=== PATIENT | female | born 1970 | race American Indian/Alaskan Native ===

== ENCOUNTER 2020-07-06 14:52 | Emergency (ER) | payer SELFPAY ==
--- NOTE | 2020-07-06 15:11 | Emergency Department Report ---
Blank Doc - Documentation Documentation: 50-year-old female that presents with acute HTN and headaches with nausea and blurry vision. This initial assessment/diagnostic orders/clinical plan/treatment(s) is/are subject to change based on patient's health status, clinical progression and re- assessment by fellow clinical providers in the ED. Further treatment and workup at subsequent clinical providers discretion. Patient/guardians urged not to elope from the ED as their condition may be serious if not clinically assessed and managed. Initial orders include: 1- Patient sent to [facility] for further evaluation and treatment 2- labs- r/o HTN emergency 3- CT head
[2020-07-06 15:47] LABS: Basophils % (Auto) 0.6 % (0.0-1.8); Eosinophils % (Auto) 0.4 % (0.0-4.3); Hematocrit 37.3 % (30.3-42.9); Hemoglobin 11.8 gm/dl (10.1-14.3); Lymphocytes % (Auto) 46.5 % (13.4-35.0); Mean Corpuscular HGB Conc 32 % (30-34); Monocytes # (Auto) 0.5 K/mm3 (0.0-0.8); Monocytes % (Auto) 7.2 % (0.0-7.3); Platelet Count 388 K/mm3 (140-440); Red Blood Count 5.52 M/mm3 (3.65-5.03); Red Cell Distribution Width 14.4 % (13.2-15.2)
[2020-07-06 15:57] LABS: Mean Corpuscular Volume 68 fl (79-97)
--- NOTE | 2020-07-06 15:57 | Cat Scan Report ---
CT head/brain wo con INDICATION: Headache, hypertension. TECHNIQUE: Routine CT head without contrast. All CT scans at this location are performed using CT dos e reduction for ALARA by means of automated exposure control. COMPARISON: None. FINDINGS: BRAIN / INTRACRANIAL CONTENTS: No acute hemorrhage, mass effect, midline shift, or hydrocephalus. No appreciable acute large territorial or lacunar infarct. Small chronic lacunar infarct in the left per iventricular white matter. Normal ventricular and cisternal size for age. ORBITS: No significant abnormality of visualized orbits. SINUSES / MASTOIDS: No significant abnormality of visualized sinuses and mastoid air cells. ADDITIONAL FINDINGS: None. IMPRESSION: 1. No acute intracranial abnormality. Signer Name: Shahbaz Christianson MD Signed: 07/06/2020 3:52 PM Workstation Name: [email or web address]
[2020-07-06 16:11] LABS: Blood Urea Nitrogen 7 mg/dL (7-17); Calcium 9.4 mg/dL (8.4-10.2); Hemolysis Index 9
[2020-07-06 16:12] LABS: BUN/Creatinine Ratio 12
[2020-07-06] MEDS ORDERED: cloNIDine 0.2 MG TAB PO ONE (22:48)
--- NOTE | 2020-07-06 22:56 | Emergency Department Report ---
ED General Adult HPI - General Chief complaint: High BP Stated complaint: HBP Time Seen by Provider: 07/06/20 22:40 Source: patient Mode of arrival: Ambulatory Limitations: No Limitations - History of Present Illness Initial comments: Patient is a 50-year-old female that presents emergency room with elevated blood pressure. Patient states she went to the urgent care and was sent here for evaluation since her blood pressure was above 200. Patient states that her blood pressure has been going up. Patient states she is compliant with her medications. Patient states she is taking clonidine 0.1 mg as needed for elevated blood pressure, lisinopril/hydrochlorothiazide 20 mg 12.5 mg daily, Norvasc 10 mg daily. Patient states that she took a clonidine and her blood pressure still did not come down. Patient denies any symptoms except for a mild headache. Patient states her headache is a 2 out of 10. Patient states her headache is better when her blood pressure comes down and with rest. Patient states her headache is worse with exertion and elevated blood pressure. Patient denies dizziness. Patient denies lightheadedness. Patient denies chest pain shortness of breath. Patient denies anxiety. Patient denies extremity swelling. Patient denies recent travel. Patient denies recent international travel. Patient denies exposure to the novel coronavirus. Patient denies sick contacts. Patient denies fever and chills. Patient denies cough. Patient denies diarrhea. Patient denies coming in contact with anybody with symptoms of the novel coronavirus. -: Sudden Location: head Radiation: non-radiation Severity scale (0 -10): 2 Quality: aching Consistency: intermittent Improves with: medication, rest Worsens with: other Associated Symptoms: headaches. denies: confusion, chest pain, cough, diaphores is, loss of appetite, malaise, nausea/vomiting, rash, seizure, shortness of breath, syncope, weakness - Related Data Previous Rx's Medication Instructions Recorded Last Taken Type Amlodipine Besylate [Norvasc] 5 mg PO BID 30 Days #60 tablet 07/07/20 Unknown Rx Lisinopril/Hydrochlorothiazide 2 tab PO DAILY 30 Days #60 tablet 07/07/20 Unknown Rx [Zestoretic 20-12.5 mg] Metoprolol Xl [Metoprolol 100 mg PO QDAY #30 tablet 07/07/20 Unknown Rx SUCCINATE ER TAB] Allergies Allergy/AdvReac Type Severity Reaction Status Date / Time No Known Allergies Allergy Verified 07/07/20 02:50 ED Review of Systems ROS: Stated complaint: HBP Other details as noted in HPI Constitutional: denies: chills, fever Eyes: denies: eye pain, eye discharge, vision change ENT: denies: ear pain, throat pain Respiratory: denies: cough, shortness of breath, wheezing Cardiovascular: denies: chest pain, palpitations Endocrine: no symptoms reported Gastrointestinal: denies: abdominal pain, nausea, diarrhea Genitourinary: denies: urgency, dysuria, discharge Musculoskeletal: denies: back pain, joint swelling, arthralgia Skin: denies: rash, lesions Neurological: headache. denies: weakness, paresthesias Psychiatric: denies: anxiety, depression Hematological/Lymphatic: denies: easy bleeding, easy bruising ED Past Medical Hx - Past Medical History Previous Medical History?: Yes Hx Hypertension: Yes - Surgical History Past Surgical History?: Yes Additional Surgical History: Partial hysterectomy. breast reduction - Family History Family history: no significant - Social History Smoking Status: Never Smoker Substance Use Type: Alcohol - Medications Home Medications: Home Medications Medication Instructions Recorded Confirmed Last Taken Type Amlodipine Besylate [Norvasc] 5 mg PO BID 30 Days #60 tablet 07/07/20 Unknown Rx Lisinopril/Hydrochlorothiazide 2 tab PO DAILY 30 Days #60 tablet 07/07/20 Unknown Rx [Zestoretic 20-12.5 mg] Metoprolol Xl [Metoprolol 100 mg PO QDAY #30 tablet 07/07/20 Unknown Rx SUCCINATE ER TAB] ED Physical Exam - General Limitations: No Limitations General appearance: alert, in no apparent distress - Head Head exam: Present: atraumatic, normocephalic - Eye Eye exam: Present: normal appearance, PERRL Pupils: Present: normal accommodation - ENT ENT exam: Present: mucous membranes moist - Neck Neck exam: Present: normal inspection - Respiratory Respiratory exam: Present: normal lung sounds bilaterally. Absent: respiratory distress, wheezes, rhonchi - Cardiovascular Cardiovascular Exam: Present: regular rate, normal rhythm, normal heart sounds. Absent: systolic murmur, diastolic murmur, rubs, gallop - GI/Abdominal GI/Abdominal exam: Present: soft, normal bowel sounds. Absent: distended, tend erness, guarding - Rectal Rectal exam: Present: deferred - Extremities Exam Extremities exam: Present: normal inspection - Back Exam Back exam: Present: normal inspection - Neurological Exam Neurological exam: Present: alert, oriented X3 - Psychiatric Psychiatric exam: Present: normal affect, normal mood - Skin Skin exam: Present: warm, dry, intact, normal color. Absent: rash ED Course Vital Signs 07/06/20 07/06/20 07/06/20 15:11 22:46 22:52 Temperature 97.7 F Pulse Rate 97 H 78 80 Respiratory 14 17 Rate Blood Pressure 235/108 235/108 Blood Pressure 232/110 [Left] O2 Sat by Pulse 100 99 Oximetry 07/06/20 07/06/20 07/06/20 23:00 23:16 23:30 Temperature Pulse Rate 67 82 67 Respiratory 19 20 20 Rate Blood Pressure 235/108 193/90 203/79 Blood Pressure [Left] O2 Sat by Pulse 100 100 100 Oximetry 07/06/20 07/06/20 07/07/20 23:33 23:45 00:00 Temperature Pulse Rate 78 73 73 Respiratory 19 18 Rate Blood Pressure 193/77 211/105 211/105 Blood Pressure [Left] O2 Sat by Pulse 100 99 Oximetry 07/07/20 07/07/20 07/07/20 00:16 00:30 00:46 Temperature Pulse Rate 69 69 74 Respiratory 13 15 14 Rate Blood Pressure 225/104 208/93 185/94 Blood Pressure [Left] O2 Sat by Pulse 100 100 100 Oximetry 07/07/20 07/07/20 07/07/20 01:00 01:16 01:30 Temperature Pulse Rate 62 62 67 Respiratory 18 18 21 Rate Blood Pressure 177/87 179/74 201/93 Blood Pressure [Left] O2 Sat by Pulse 100 100 100 Oximetry 07/07/20 07/07/20 07/07/20 01:46 02:00 02:46 Temperature Pulse Rate 65 Respiratory 13 18 Rate Blood Pressure 183/94 183/94 Blood Pressure [Left] O2 Sat by Pulse 100 99 99 Oximetry - Reevaluation(s) Reevaluation #1: Initial evaluation done. Patient will receive 0.2 mg of clonidine because her blood pressure is greater than 210. 07/06/20 22:50 Reevaluation #2: Patient's blood pressure still significantly elevated. Patient will receive metoprolol 50 mg 07/07/20 23:51 Reevaluation #3: Patient's blood pressure still significantly high. Patient will receive 100 mg of hydralazine. 07/07/20 00:53 Reevaluation #4: Patient's systolic blood pressure has remained below 190. Patient's headache has resolved. Patient instructed to continue all other blood pressure me dications. Patient instructed to keep a blood pressure log. I discussed all results and clinical findings with patient. I discussed plan of care with patient. Patient agrees with plan of care. Patient is stable for discharge. Patient will be discharged home. Patient given discharge instructio ns. Patient voiced understanding of discharge instructions. 07/07/20 02:53 Reevaluation #5: After discharge, the patient states that she needs a refill of her lisinopri l/hydrochlorothiazide and Norvasc. 07/07/20 03:24 ED Medical Decision Making - Lab Data Result diagrams: 07/06/20 15:27 07/06/20 15:27 - EKG Data -: EKG Interpreted by Me EKG shows normal: sinus rhythm, axis, intervals, QRS complexes, ST-T waves Rate: normal - Radiology Data Radiology results: report reviewed CT head/brain wo con INDICATION: Headache, hypertension. TECHNIQUE: Routine CT head without contrast. All CT scans at this location are performed using CT dose reduction for ALARA by means of automated exposure control. COMPARISON: None. FINDINGS: BRAIN / INTRACRANIAL CONTENTS: No acute hemorrhage, mass effect, midline shift, or hydrocephalus. No appreciable acute large territorial or lacunar infarct. Small chronic lacunar infarct in the left periventricular white matter. Normal ventricular and cisternal size for age. ORBITS: No significant abnormality of visualized orbits. SINUSES / MASTOIDS: No significant abnormality of visualized sinuses and mastoid air cells. ADDITIONAL FINDINGS: None. IMPRESSION: 1. No acute intracranial abnormality. - Medical Decision Making Patient is a 50-year-old female that presents emergency room with complaints of headache and elevated blood pressure. Patient's blood pressure was consistent with a hypertensive emergency. Patient initially given clonidine 0.2 mg with minimal result. Patient was then given metoprolol 50 mg with minimal result. Patient was then given 100 mg of hydralazine and her blood pressure finally came down to a more acceptable range. Patient's blood pressure at the time of discharge was 183/90. Patient had labs done which were unremarkable except for hyperglycemia. Patient's head CT was done for the headache and it was negative for acute findings. Patient's EKG is negative for acute findings. Patient is stable for discharge. Patient given discharge instructions. - Differential Diagnosis Hypertensive emergency, Critical Care Time: Yes Critical care time in (mins) excluding proc time.: 35 Critical care attestation.: If time is entered above; I have spent that time in minutes in the direct care of this critically ill patient, excluding procedure time. Critical Care Time: 35 minutes ED Disposition Clinical Impression: Uncontrolled hypertension, Essential hypertension, Hyperglycemia, Hypertensive emergency Disposition: DC-01 TO HOME OR SELFCARE Is pt being admited?: No Does the pt Need Aspirin: No Condition: Stable Instructions: Heart Healthy Diet (ED), How to Take a Blood Pressure (ED), DASH Eating Plan (ED), Low Sodium Diet (ED), Hypertensive Crisis (ED), Hypertension (ED) Additional Instructions: Patient to follow-up with primary care in 2 to 3 days. Patient to follow-up with cardiology in 2 to 3 days. Patient to rest. Patient to increase water. Patient to avoid strenuous exercise or heavy lifting until cleared by [employer]. Patient to monitor blood pressure at home. Patient to keep a blood pressure log. Patient to take blood pressure log to her follow-up appointments. Patient to eat a low-salt, heart healthy diet. Patient to take Tylenol as needed for pain. Patient to take meds as directed. Patient to return to the ER if condition worsens, changes or new symptoms arise. Prescriptions: Metoprolol Xl [Metoprolol SUCCINATE ER TAB] 100 mg PO QDAY #30 tablet Amlodipine Besylate [Norvasc] 5 mg PO BID 30 Days #60 tablet Lisinopril/Hydrochlorothiazide [Zestoretic 20-12.5 mg] 2 tab PO DAILY 30 Days #60 tablet Referrals: MIGUEL GUTHRIE MD [Primary Care Provider] - 2-3 Days LANDRY ROCHA MD [Staff Physician] - 2-3 Days Time of Disposition: 03:02
[2020-07-06] MEDS ORDERED: METOPROLOL TARTRATE 50 MG TAB PO ONE (23:25)
[2020-07-07] MEDS ORDERED: hydrALAZINE 100 MG TAB PO ONE (00:24)
[2020-07-07 02:53] VITALS: BP 183/94
[2020-07-07] MEDS ORDERED: niCARdipine 50 MG in SODIUM CHLORIDE 0.9% 250ML 230 ML IV SCH (03:00)
== END 2020-07-07 03:14 | disposition home or self-care (01) ==
LOC: ED 14:52
DX: I10 Essential (primary) hypertension (principal); R73.9 Hyperglycemia, unspecified; Z79.899 Other long term (current) drug therapy; Z90.710 Acquired absence of both cervix and uterus; Z98.890 Other specified postprocedural states
CPT/HCPCS: 36415; 70450; 80048; 85025; 93005; J7050